=== PATIENT | female | born 1955 | race Caucasian/White ===

== ENCOUNTER 2018-05-12 08:13 | Emergency (ER) | payer MEDICAID ==
[~2018-05-12] VITALS: Ht 165.1 cm; Wt 51.8 kg
[2018-05-12 08:19] VITALS: BP 158/79; PULSE 112; RESP 20; Ht 165.1 cm; Wt 51.8 kg
[2018-05-12] MEDS ORDERED: PHEN-538 PO (09:28)
[2018-05-12] MEDS ORDERED: CEPH-443 PO (09:28)
[2018-05-12] MEDS ORDERED: CEPHALEXIN 500 MG CAP PO ONE (09:30)
[2018-05-12] MEDS ORDERED: PHENAZOPYRIDINE 100 MG TAB PO ONE (09:30)
--- NOTE | 2018-05-12 09:30 | ERD ---
ER Documentation Chief Complaint Chief Complaint Complains of blood in and foul smelling urine x 3 days HPI 63-year-old female presents with foul-smelling urine and hematuria for last week. She went to her primary doctor and was told she had normal urine but symptoms persist. She denies any fevers, vomiting, flank pain, abdominal pain. ROS All systems reviewed and are negative except as per history of present illness. Medications Home Meds Active Scripts Phenazopyridine Hcl* (Pyridium*) 200 Mg Tab, 200 MG PO TID PRN for URINARY PAIN, #6 TAB Prov:LASHAY LERMA MD 05/12/18 Cephalexin* (Keflex*) 500 Mg Capsule, 500 MG PO QID for 5 Days, CAP Prov:LASHAY LERMA MD 05/12/18 Allergies Allergies: Coded Allergies: No Known Allergy (Unverified , 05/12/18) PMhx/Soc Medical and Surgical Hx: pt denies Surgical Hx History of Surgery: No Anesthesia Reaction: No Hx Neurological Disorder: No Hx Respiratory Disorders: No Hx Cardiac Disorders: Yes (HTN) Hx Psychiatric Problems: No Hx Miscellaneous Medical Probl: No Hx Alcohol Use: No Hx Substance Use: No Hx Tobacco Use: No Smoking Status: Never smoker Physical Exam Vitals Vital Signs Date Temp Pulse Resp B/P (MAP) Pulse Ox O2 O2 Flow FiO2 Time Delivery Rate 05/12/18 95.2 112 20 158/79 99 08:19 (105) Physical Exam Const: No acute distress Head: Atraumatic Eyes: Normal Conjunctiva ENT: Normal External Ears, Nose and Mouth. Neck: Full range of motion. No meningismus. Resp: Clear to auscultation bilaterally Cardio: Regular rate and rhythm, no murmurs Abd: Soft, non tender, non distended. Normal bowel sounds Skin: No petechiae or rashes Back: No midline or flank tenderness Ext: No cyanosis, or edema Neur: Awake and alert Psych: Normal Mood and Affect Results 24 hrs Laboratory Tests Test 05/12/18 08:47 Urine Color COLORLESS Urine Clarity CLEAR Urine pH 6.0 Urine Specific [place] 1.004 Urine Ketones NEGATIVE mg/dL Urine Nitrite NEGATIVE mg/dL Urine Bilirubin NEGATIVE mg/dL Urine Urobilinogen NEGATIVE mg/dL Urine Leukocyte Esterase TRACE Mack/ul Urine Microscopic RBC 1 /HPF Urine Microscopic WBC 10 /HPF Urine Hemoglobin NEGATIVE mg/dL Urine Glucose NEGATIVE mg/dL Urine Total Protein NEGATIVE mg/dl Current Medications Medications Dose Sig/[place] Start Time Status Last (Trade) Ordered Route PRN Stop Time Admin Dose Reason Admin Cephalexin 500 mg ONCE ONCE 05/12/18 UNV (Keflex) PO 09:30 05/12/18 09:31 200 mg ONCE ONCE 05/12/18 UNV Phenazopyridi PO 09:30 ne HCl 05/12/18 09:31 (Pyridium) Procedures/MDM Urine shows leukocyte esterase, white blood cells. There is no hemoglobin or blood. Patient was given Keflex and Pyridium. Patient has signs and symptoms of uncomplicated cystitis without signs of abdominal pain, pyonephritis, sepsis. She was treated with Keflex, Pyridium, primary care follow-up and return precautions. The patient's blood pressure was elevated (>120/80) but appears stable without evidence of hypertension emergency or urgency. The patient was counseled about the risks of hypertension and urged to pursue outpatient monitoring and therapy within a week with their primary care physician. I discussed the findings with the patient. I advised the patient to follow-up with the primary physician in about 1-2 days, sooner if needed and return if any concern. The patient was stable with no new complaints during the ER course. Clinically, there is no current evidence to suggest meningitis, sepsis, acute abdomen, pneumonia, stroke, acute coronary syndrome, pulmonary embolism, aortic dissection or any other emergent condition appearing to require further evaluation or hospitalization. Patient counseled regarding my diagnostic impr ession and care plan. Prior to discharge all questions answered. Pt agrees with treatment plan and understands strict return precautions. Pt is instructed to follow up with primary care provider within 24-48 hours. Precautionary instructions provided including instructions to return to the ER if not improving or for any worsening or changing symptoms or concerns. Departure Diagnosis: Primary Impression: UTI (urinary tract infection) Urinary tract infection type: acute cystitis Hematuria presence: without hematuria Qualified Codes: N30.00 - Acute cystitis without hematuria Condition: Stable Patient Instructions: Understanding Urinary Tract Infections (UTIs) Additional Instructions: Urine shows infection today. Recheck with primary doctor or for new or worsening symptoms. LASHAY LERMA MD May 12, 2018 09:30
== END 2018-05-12 09:45 | disposition home or self-care (01) ==
LOC: FTE 08:13
DX: N30.00 Acute cystitis without hematuria (principal); I10 Essential (primary) hypertension
CPT/HCPCS: 81001; Z7502; Z7610; 99283